=== PATIENT | female | born 1955 | race Two or more races ===

== ENCOUNTER 2018-06-02 17:40 | Inpatient (IN) | payer BC, OTHER ==
[~2018-06-02] VITALS: Ht 160 cm; Wt 59.9 kg
--- NOTE | 2018-06-02 18:30 | NUR ---
RN-CO: PATIENT CAME HERE TO THE UNIT VIA GURVIRAL FROM [facility]. NOTED THAT THER IS NO CLEAR LEGAL HOLD, NOTIFIED RN ASSISTANT PASTRY CHEF AND SHAUNA BEAR. PATIENT REMAIN CALM AND COOPERATIVE. OFFERED DINNER.
[2018-06-02 18:37] VITALS: BP 116/52
[2018-06-02] MEDS ORDERED: ATOR10TA PO (18:39)
[2018-06-02] MEDS ORDERED: ARIP2TAB3 PO (18:39)
[2018-06-02] MEDS ORDERED: DICL100G16 TP (18:39)
[2018-06-02] MEDS ORDERED: MELA5TAB PO (18:39)
[2018-06-02] MEDS ORDERED: DICY10CA13 PO (18:39)
[2018-06-02] MEDS ORDERED: DULO30CA2 PO (18:39)
[2018-06-02] MEDS ORDERED: ASPI-1169 PO (18:39)
[2018-06-02] MEDS ORDERED: FLUO20CA36 PO (18:39)
[2018-06-02] MEDS ORDERED: GABA-534 PO (18:39)
--- NOTE | 2018-06-02 18:46 | NUR ---
RN-CO: PER FANY ( DIRECTOR OF ) ASK PATIENT TO SIGN VOLUNTARILY SINCE PATIENT IS ALERT/ORIENTED X 4. PATIENT SIGNED VOLUNTARILY. PER FACE TO FACE, , SHE IS CALM AND COOPERATIVE. WELL GROOMED AND DENIED SI. PATIENT STATED " I HAVE ON AND OFF DEPRESSION AND SUICIDAL IDEATION BUT NOT RIGHT NOW."
[2018-06-02] MEDS ORDERED: OXYC20TA42 PO (18:50)
[2018-06-02] MEDS ORDERED: DICY10CA37 PO (18:50)
[2018-06-02 20:00] VITALS: BP_SYST 121; BP_SYST 125; BP_DIAS 84
[2018-06-02] MEDS ORDERED: MAGNESIUM HYDROXIDE 30 ML UDC PO PRN (20:00)
[2018-06-02] MEDS ORDERED: MAG HYDROX/AL HYDROX/SIMETH 30 ML UDC PO PRN (20:00)
[2018-06-02] MEDS ORDERED: ACETAMINOPHEN 325 MG TABLET PO PRN (20:00)
--- NOTE | 2018-06-02 20:00 | NUR ---
CAME IN FROM [facility] ON VOLUNTARY ADMISSION, PATIENT IS ALERT ORIENTED X3, AMBULATORY, SKIN CLEAR, DENIES ANY PAIN/DISCOMFORT AT THIS TIME, SHOWS NO S/S OF ANY DISTRESS. REFUSED TOTAL BODY ASSESSMENT AND PHOTO TAKEN. PREFERS FULL CODE STATUS. PATIENT ADMITTED FOR DEPRESSION. ADMITTED THAT SHE TOOK MEDICATIONS IN AN ATTEMPT TO KILL HERSELF DUE TO HER DEPRESSION,HER IS SICK AND DYING. DENIES ANY ATTEMPT TO HURT HERSELF AT THIS TIME AND HAS NO PLAN TO COMMIT SUICIDE, DENIES SI/HI. BELONGINGS WERE INVENTORIED AND CHECKED FOR CONTRABAND. PATIENT STATED, HER IS AWARE THAT SHE IS ADMITTED TO [facility]. REFUSED MRSA SCREEN DONE. PATIENT IS WELL GROOMED AND CLEAN. DEPRESSED, COOPERATIVE, INTERACTS WHEN ENGAGED, THOUGHT PROCESS INTACT. BED LOCKED AND PLACED ON LOWEST POSITION FOR SAFETY. WILL CONTINUE TO MONITOR Q 15 MINS. FOR SAFETY AND BEHAVIOR.
--- NOTE | 2018-06-02 20:22 | NUR ---
PAGED AND SPOKE WITH AUTOMOTIVE CONSULTANT [employer]IVING[employer]ON ABOUT MED RECON TO BE DONE.
[2018-06-02] MEDS: TEMAZEPAM 7.5 MG CAPSULE PO PRN (20:55)
[2018-06-02] MEDS: DICYCLOMINE HCL 10 MG CAPSULE PO SCH (20:55)
--- NOTE | 2018-06-02 20:56 | NUR ---
C/O INSOMNIA, TEMAZEPAM 15 MG CAP PO GIVEN PER REQUEST.
[2018-06-02] MEDS ORDERED: IBUPROFEN 400 MG TABLET PO PRN (21:00)
[2018-06-02] MEDS: GABAPENTIN 300 MG CAPSULE PO SCH (22:19)
[2018-06-03 08:00] VITALS: BP 100/59
[2018-06-03 08:09] LABS: BASOPHILS % (AUTO) 0.6 % (0.0-2.0); EOSINOPHILS % (AUTO) 6.2 % (0.0-6.0); HEMATOCRIT 34 % (33-45); HEMOGLOBIN 11.4 g/dL (11.5-14.8); LYMPHOCYTES # (AUTO) 1.1 /CMM (0.8-4.8); LYMPHOCYTES % (AUTO) 41.7 % (20.0-44.0); MEAN CORPUSCULAR HGB CONC 34 g/dl (31.0-36.0); MEAN CORPUSCULAR VOLUME 98 fL (82-100); MONOCYTES # (AUTO) 0.2 /CMM (0.1-1.30); MONOCYTES % (AUTO) 7.1 % (2.0-12.0); NEUTROPHILS # (AUTO) 1.2 /CMM (1.8-8.9); NEUTROPHILS % (AUTO) 44.4 % (43.0-81.0); PLATELET COUNT (AUTO) 194 /CMM (150-450); RED BLOOD CELL COUNT(AUTO) 3.48 MIL/uL (4.0-5.2); WHITE BLOOD COUNT (AUTO) 2.7 K/uL (4.3-11.0)
[2018-06-03] MEDS: ASPIRIN 81 MG TAB.CHEW PO SCH (08:09)
[2018-06-03] MEDS: DICYCLOMINE HCL 10 MG CAPSULE PO SCH ×4 (08:09→20:26)
[2018-06-03] MEDS: ATORVASTATIN 10 MG TABLET PO SCH (08:10)
[2018-06-03 08:27] LABS: ALBUMIN 2.9 g/dL (3.4-5.0); BILIRUBIN,TOTAL 0.3 mg/dL (0.2-1.0); CALCIUM, SERUM 8.3 mg/dL (8.5-10.1); POTASSIUM 3.9 mmol/L (3.5-5.1); TOTAL PROTEIN, SERUM 5.6 g/dL (6.4-8.2)
[2018-06-03 08:32] LABS: BAND % (MANUAL) 2 % (0.0-5.0); EOSINOPHILS % (MANUAL) 4 % (0-4); LYMPHOCYTES % (MANUAL) 44 % (16-48); MONOCYTES % (MANUAL) 6 % (0-11.0); NEUTROPHILS % (MANUAL) 44 (42-76)
--- NOTE | 2018-06-03 11:45 | NUR ---
SW called the pt's , Hector ([phone]), and left a message for him stating that the SW would like to discuss the initial discharge plan.
--- NOTE | 2018-06-03 12:04 | NUR ---
UR Note: SW called the pt's [facility] social work case manager, Aliyah ([phone]), and she stated that the authorization was voided by the intake and the hospital was told to contact the [facility] at [phone].
--- NOTE | 2018-06-03 12:40 | NUR ---
gps wire loop machine operator: md visit seen and examined by dr. malone with verbal order to continue her oxycodone 20mg po every 4 hours prn and may have ambien 5mg po qhs prn. orders read back and carried out and acknowledged.
--- NOTE | 2018-06-03 12:56 | NUR ---
UR Note: DANIEL contacted the Intake department and spoke to Arely who provided her with the following information: PATIENT: LAYLA NEWMAN TIMBO ID: [id number] AUTH #: [id number] CASE MANGER: JAGRUTI JOANNE [phone] APPROVAL DAYS: 3 DAYS TO START WITH INITIAL CLINICAL
[2018-06-03] MEDS: FLUOXETINE HCL 20 MG CAPSULE PO SCH (12:59)
--- NOTE | 2018-06-03 13:44 | NUR ---
Initial Discharge Plan: Pt currently resides at her home with her , Hector ([phone]), located at [address] [place] [address]. Per pt, she would like to return to her home once she is stable. DANIEL will work with the MD and the pt regarding appropriate discharge planning. SW will form a safe and proper discharge.
--- NOTE | 2018-06-03 13:54 | NUR ---
UR Note: DANIEL called Chiara Guillen ([phone]), pts case aide from [facility], and informed her that the pt needs to be authorized throughout the weekend because there will be no one available to conduct a clinical review. Chiara asked the SW to fax over a clinical to see if the pt meets criteria for additional authorization.
--- NOTE | 2018-06-03 13:55 | NUR ---
UR Note: DANIEL faxed a clinical to [facility] with attention to Chiara to the fax number: [phone].
--- NOTE | 2018-06-03 14:17 | NUR ---
gps drum reel cutter: notes verify allergy to pt and stated, "no i'm not allergic to codeine, i take oxycodone for years."
--- NOTE | 2018-06-03 14:20 | NUR ---
gps deli/bakery associate: notes pharmacy notified and spoke to kaylee (pharmacist) and informed him that pt is not allergic to codeine.
--- NOTE | 2018-06-03 14:58 | NUR ---
DANIEL conducted a substance abuse intervention with the pt. Addendum: 06/03/18 at 1501 by VICENTE SANCHEZ Due to her overdose on her medications.
[2018-06-03] MEDS: oxyCODONE IR immediate release 5 MG PO PRN (15:40)
[2018-06-03 16:00] VITALS: BP 102/69
--- NOTE | 2018-06-03 16:05 | NUR ---
SW received a voicemail from Chiara ([phone]) from [employer] stating that the pt is authorized throughout the weekend and that a review will be due on 06/06/18 if additional days will be requested.
[2018-06-03 20:00] VITALS: BP 121/54
--- NOTE | 2018-06-03 20:20 | NUR ---
TEMAZEPAM 15 MG PO GIVEN FOR SLEEP.
[2018-06-03] MEDS: TEMAZEPAM 7.5 MG CAPSULE PO PRN (21:21)
[2018-06-03] MEDS: ARIPIPRAZOLE 5 MG TABLET PO SCH (21:21)
[2018-06-03] MEDS: GABAPENTIN 300 MG CAPSULE PO SCH (21:23)
[2018-06-03] MEDS ORDERED: ZOLPIDEM TARTRATE 5 MG TABLET PO PRN (22:00)
[2018-06-03] MEDS ORDERED: DICYCLOMINE HCL 10 MG CAPSULE PO SCH (23:00)
--- NOTE | 2018-06-04 06:36 | NUR ---
06/03: New order of bentyl last night at 2300 not administered, needs verification from . Bentyl 10 mg QID IS ALSO ORDERED ON 06/02/2018
[2018-06-04 08:00] VITALS: BP 111/50
[2018-06-04] MEDS: ASPIRIN 81 MG TAB.CHEW PO SCH (08:14)
[2018-06-04] MEDS: clonazePAM 0.5 MG TABLET PO PRN (08:14)
[2018-06-04] MEDS: ATORVASTATIN 10 MG TABLET PO SCH (08:14)
--- NOTE | 2018-06-04 08:17 | NUR ---
GPS/RN-NOTES PATIENT STATED" I NEED ANTI ANXIETY MEDICATION,I'M VERY ANXIOUS". KLONOPIN 0.5MG P.O GIVEN PRN ORDER. WILL CONT. MONITORING FOR SAFETY AND BEHAVIOR.
--- NOTE | 2018-06-04 09:20 | NUR ---
GPS/RN-NOTES PATIENT PARTICIPATING ION THE [employer]. NO ACUTE DISTRESS NOTED.
--- NOTE | 2018-06-04 10:00 | NUR ---
GPS/RN PT WANTS TO BE DISCHARGED HOME .DR. CACERES CALLED FOR THE ORDERS. PSYCHIATRIST REQUESTED CRISIS TEAM EVALUATION. [facility] PET TEAM CALLED AND WILL COME TO ASSESS THE PT.
--- NOTE | 2018-06-04 10:08 | NUR ---
GPS/RN-NOTES VERIFIED HELENA ORDER TO DR. ASHER WITH T.O ORDER TO D/C HELENA CHENG ORDER. NOTED AND CARRIED OUT.
[2018-06-04] MEDS: DICYCLOMINE HCL 10 MG CAPSULE PO SCH ×4 (10:15→21:00)
[2018-06-04] MEDS: oxyCODONE IR immediate release 5 MG PO PRN ×2 (11:35→17:22)
--- NOTE | 2018-06-04 11:40 | NUR ---
GPS/RN-NOTES PATIENT REQUESTING OXYCODONE FOR HER 10 GENERALIZED BODY PAIN. OXYCODONE IR 20MG P.O GIVEN PRN ORDER. WILL CONT. MONITORING FOR SAFETY AND BEHAVIOR.
[2018-06-04] MEDS: FLUOXETINE HCL 20 MG CAPSULE PO SCH (13:22)
--- NOTE | 2018-06-04 13:40 | NUR ---
GPS/RN-NOTES CALLED DR. MACIAS AND LEFT MSG. VIA VOICE MAIL.STILL AWAITING FOR CALL BACK.
--- NOTE | 2018-06-04 15:53 | NUR ---
GPS/RN-NOTES PATIENT C/O CONSTIPATION FOR 4 DAYS AND REQUESTING FOR LAXATIVES MEDICATION. DR. ASHER MADE AWARE WITH T.O ORDER OF DULCOLAX 10MG P.O BID PRN. NOTED AND CARRIED OUT.
[2018-06-04 16:00] VITALS: BP 131/64
[2018-06-04] MEDS: BISACODYL (5 MG) 5 MG TABLET.DR PO PRN (16:08)
--- NOTE | 2018-06-04 16:10 | NUR ---
GPS/RN-NOTES DULCOLAX 10MG P.O GIVEN PER PATIENT REQUEST.
--- NOTE | 2018-06-04 17:06 | NUR ---
RN-CO: DR CACERES WAS PAGED TO LET HIM KNOW THAT PATIENT IS WILLING TO STAY AND WAIT FOR PANDA WHITNEY.
--- NOTE | 2018-06-04 17:14 | NUR ---
GPS/RN-NOTES DR. ASHER MADE AWARE OF PATIENT STAYING FOR THE NIGHT AND TOMORROW.
--- NOTE | 2018-06-04 17:24 | NUR ---
GPS/RN-NOTES PATIENT STATED" I NEED MY OXYCODONE FOR MY BODY PAIN". OXYCODONE IR 20MG P.O GIVEN PRN ORDER. WILL CONT. MONITORING FOR SAFETY AND BEHAVIOR.
[2018-06-04 20:00] VITALS: BP 126/67
[2018-06-04] MEDS: TEMAZEPAM 7.5 MG CAPSULE PO PRN (21:01)
[2018-06-04] MEDS: GABAPENTIN 300 MG CAPSULE PO SCH (21:31)
[2018-06-04] MEDS: ARIPIPRAZOLE 5 MG TABLET PO SCH (21:31)
[2018-06-05 08:00] VITALS: BP 117/58
[2018-06-05] MEDS: ASPIRIN 81 MG TAB.CHEW PO SCH (08:17)
[2018-06-05] MEDS: DICYCLOMINE HCL 10 MG CAPSULE PO SCH ×4 (08:18→20:27)
[2018-06-05] MEDS: ATORVASTATIN 10 MG TABLET PO SCH (08:18)
[2018-06-05] MEDS: BISACODYL (5 MG) 5 MG TABLET.DR PO PRN (08:19)
[2018-06-05] MEDS: oxyCODONE IR immediate release 5 MG PO PRN ×3 (08:21→20:32)
[2018-06-05] MEDS: FLUOXETINE HCL 20 MG CAPSULE PO SCH (12:10)
[2018-06-05] MEDS: clonazePAM 0.5 MG TABLET PO PRN (15:51)
[2018-06-05 16:00] VITALS: BP 135/62
[2018-06-05 19:26] VITALS: BP 110/60
[2018-06-05] MEDS: ARIPIPRAZOLE 5 MG TABLET PO SCH (21:18)
[2018-06-05] MEDS: GABAPENTIN 300 MG CAPSULE PO SCH (21:19)
[2018-06-05] MEDS: TEMAZEPAM 7.5 MG CAPSULE PO PRN (21:36)
[2018-06-06] MEDS: oxyCODONE IR immediate release 5 MG PO PRN ×2 (07:00→14:39)
[2018-06-06 08:00] VITALS: BP 119/58
[2018-06-06] MEDS: DICYCLOMINE HCL 10 MG CAPSULE PO SCH ×2 (08:18→13:12)
[2018-06-06] MEDS: ASPIRIN 81 MG TAB.CHEW PO SCH (08:18)
[2018-06-06] MEDS: BISACODYL (5 MG) 5 MG TABLET.DR PO PRN (08:18)
[2018-06-06] MEDS: ATORVASTATIN 10 MG TABLET PO SCH (08:18)
--- NOTE | 2018-06-06 11:03 | NUR ---
UR Note: DANIEL faxed a clinical to [facility] with attention to Chiara to the fax number: [phone].
--- NOTE | 2018-06-06 12:00 | NUR ---
RN-CO: PATIENT WAS SEEN AND EXAMINED BY DR MORGAN WITH ORDERS TO DISCHARGE PATIENT TODAY. NOTED. PATIENT DENIED SUICIDAL AND HOMICIDAL IDEATION. WITH APPROPRIATE AFFECT, VISIBLE UN THE UNIT. PATIENT DENIED AUDITORY AND VISUAL HALLUCINATION. COMPLIANT WITH MEDICATIONS , ALERT AND ORIENTED X 4. PER PATIENT SHE WILL BE PICKED UP BY HER . PATIENT WAS ALSO SEEN BY DR AUGUSTINE AND MEDICALLY CLEARED HER FOR DISCHARGE. PRESCRIPTIONS WAS WRITTEN.
--- NOTE | 2018-06-06 12:47 | NUR ---
DANIEL faxed the appropriate discharge paperwork to the pt's provider, Dr. Edwin Shoemaker, to the fax number: [phone].
--- NOTE | 2018-06-06 12:48 | NUR ---
DANIEL called Dr. Edwin Shoemaker's office ([phone]) and scheduled a follow up appointment for the pt for June 13 at 2PM.
--- NOTE | 2018-06-06 12:49 | NUR ---
UR Note: DANIEL called Chiara Guillen ([phone]), pts manager case from [facility], and informed her that the pt is being discharged today and that the SW will fax over a discharge clinical.
--- NOTE | 2018-06-06 12:51 | NUR ---
DANIEL called the pt's , Hector ([phone]), and left a message for him stating that the SW would like to know when he would be available to pick the pt up. DANIEL left her phone number at the end of the voicemail and requested a call back.
[2018-06-06] MEDS: FLUOXETINE HCL 20 MG CAPSULE PO SCH (13:11)
--- NOTE | 2018-06-06 15:45 | NUR ---
DISCHARGE NOTES PATIENT WAS SEEN AND EXAMINED BY DR MORGAN WITH ORDERS TO DISCHARGE PATIENT TODAY. NOTED. PATIENT DENIED SUICIDAL AND HOMICIDAL IDEATION. WITH APPROPRIATE AFFECT, VISIBLE UN THE UNIT. PATIENT DENIED AUDITORY AND VISUAL HALLUCINATION. COMPLIANT WITH MEDICATIONS , ALERT AND ORIENTED X 4. PER PATIENT SHE WILL BE PICKED UP BY HER . PATIENT WAS ALSO SEEN BY DR AUGUSTINE AND MEDICALLY CLEARED HER FOR DISCHARGE. PRESCRIPTIONS WAS WRITTEN. DISCHARGED PATIENT IN STABLE CONDITION PICKED UP BY AND ACCOMPANIED BY SCOTT OLIVEIRA TO THE LOBBY. DISCHARGE INSTRUCTIONS GIVEN, VERBALIZED UNDERSTANDING. ALL DC PAPERWORK AND PRESCRIPTIONS GIVEN. ALL BELONGINGS RETURNED, FORM SIGNED. REFUSED PHOTOS. DENIED SI/HI.
--- NOTE | 2018-06-06 16:14 | NUR ---
Discharge Note: Pt was discharged home to [address], [address], [place] [address]; ([phone]). Pt was picked up by her , Hector ([phone]), who arrived at 4PM. Upon discharge, the pt appeared to be in a euthymic mood and presented with an irritated affect. Pt stated that she does not believe that she needs to be hospitalized any longer because she realized that she made a mistake and her home with her is the correct environment for her. Pt denied both suicidal and homicidal ideation as well as auditory and visual hallucinations. Pt was provided with substance abuse referrals that are listed below at the time of discharge. Pt was referred to a psychiatrist, Dr. Daryl Wong, located at [id number], [place] [address]; and the pt will follow up with her social service agency director, Dr. Edwin Shoemaker, located at [address] [address]; on 06/13/18 at 2PM.
--- NOTE | 2018-06-07 10:38 | NUR ---
UR Note: DANIEL faxed a discharge clinical to [facility] with attention to Chiara to the fax number: [phone].
--- NOTE | 2018-06-20 10:20 | NUR ---
15 Day Follow Up: SW called the pt ([phone]) and left a message on her voicemail stating that she would like to get a call back to conduct the follow up.
--- NOTE | 2018-06-21 10:10 | NUR ---
15 Day Follow Up: SW called the pt ([phone]) and left a message on her voicemail stating that she would like to get a call back to conduct the follow up.
--- NOTE | 2018-06-21 12:56 | NUR ---
15 Day Follow Up: DANIEL was unable to conduct the substance abuse follow up due to the lack of contact with the pt.
== END 2018-06-06 15:45 | disposition home or self-care (01) | DRG 885 ==
LOC: GPS 17:40
PROVIDERS: ADMIT Psychiatry & Neurology Psychosomatic Medicine; ATTEND Psychiatry & Neurology Psychiatry
DX: F29 Unspecified psychosis not due to a substance or known physiological condition (principal); F01.50 Vascular dementia, unspecified severity, without behavioral disturbance, psychotic disturbance, mood disturbance, and anxiety; F11.20 Opioid dependence, uncomplicated; E44.1 Mild protein-calorie malnutrition; E78.5 Hyperlipidemia, unspecified; G47.00 Insomnia, unspecified; G89.29 Other chronic pain; I10 Essential (primary) hypertension; I25.10 Atherosclerotic heart disease of native coronary artery without angina pectoris; K21.9 Gastro-esophageal reflux disease without esophagitis; Z95.2 Presence of prosthetic heart valve; F32.9 Major depressive disorder, single episode, unspecified; Z68.23 Body mass index [BMI] 23.0-23.9, adult; E88.09 Other disorders of plasma-protein metabolism, not elsewhere classified
CPT/HCPCS: 36415; 80053-TC; 80061-TC; 85025-TC; 87081-TC